=== PATIENT | female | born 1985 ===

== ENCOUNTER 2017-05-20 18:26 | Emergency (ER) | payer SELFPAY ==
[2017-05-20 20:49] VITALS: BMI 36.5
--- NOTE | 2017-05-20 22:10 | OBADHP ---
Datetime: 05/20/2017 21:22 Admit Comment, IP Provider: Pt not in active labor 2cm dilated 50% effaced -3 station. Pt given er precautions and to return at 08:00 for IOL. Case d/w Dr. Khan The patient was seen with the resident I agree with the note Gus Brush MD Family Medicine, PGY1 IP Chief Complaint: Maternal discomfort EGA AdmitDate IP: 40.5 IP Adm Impression: Postterm, intrauterine IP Admit Plan: Discharge home Datetime: 05/20/2017 20:00 Pelvic Type - PN: Adequate Extremities - PN: Normal Abdomen - PN: Normal Back - PN: Normal Breast - PN: Not Done Lungs - PN: Normal Heart - PN: Normal Thyroid - PN: Normal Neurologic - PN: Normal HEENT - PN: Normal General - PN: Normal FHR - Baseline A Provider: 130 Contraction Comments Provider: 7 minutes Pool Provider: Negative Vital Signs Provider: Reviewed; Within Normal Limits NICHD Variability Prov Fetus A: Moderate 6-25bpm NICHD Accel Fetus A IP Provider: 15X15 FHR Category Provider Fetus A: Category I NICHD Decel Fetus A IP Provider: None Dilatation, Provider: 2 Effacement, Provider: 50 Station, Provider: -3 Genitourinary Exam: Normal DTRs - PN: Not Done
== END 2017-05-20 20:15 | disposition home or self-care (01) ==
LOC: H.EROB2 18:26 → H.L&D 18:37 → H.EROB2 20:15 → EDSTATUS 05-21 18:26
DX: O47.1 False labor at or after 37 completed weeks of gestation (principal); Z3A.40 40 weeks gestation of pregnancy; O48.0 Post-term pregnancy

== ENCOUNTER 2017-05-21 08:25 | Inpatient (IN) | payer MEDICAID, SELFPAY ==
[2017-05-20 20:49] VITALS: BMI 36.5
[2017-05-21] MEDS: Lactated Ringer's 1,000 ML IV SCH ×2 (09:50→18:30)
[2017-05-21] MEDS: Oxytocin 30 UNITS in Sodium Chloride 0.9% 500 ML IV SCH ×2 (11:01→18:58)
[2017-05-21 11:05] LABS: BASO % 0.4 % (0.0-2.0); EOS # 0.2 K/uL (0.0-0.7); EOS % 2.2 % (0.0-4.0); HEMOGLOBIN 10.6 g/dL (12.0-16.0); LYMPH # 1.8 K/uL (1.0-4.3); LYMPH % 25.6 % (20.0-40.0); MEAN CELL VOLUME 79.9 fl (81.0-99.0); MEAN CORPUSCULAR HEMOGLOBIN 25.9 pg (27.0-31.0); MEAN CORPUSCULAR HGB CONC 32.4 g/dL (33.0-37.0); MEAN PLATELET VOLUME 11.9 fl (7.2-11.7); MONO # 0.5 K/uL (0.0-0.8); MONO % 6.6 % (0.0-10.0); NEUT # 4.6 K/uL (1.8-7.0); NEUT % 65.2 % (50.0-75.0); NRBC % 0.1 % (0.0-0.0); RBC 4.11 Mil/uL (3.80-5.20); RED CELL DISTRIBUTION WIDTH 15.5 % (11.5-14.5); WHITE BLOOD COUNT 7.1 K/uL (4.8-10.8)
[2017-05-21] MEDS ORDERED: Oxytocin 30 UNITS in Sodium Chloride 0.9% 500 ML IV ONE (12:58)
[2017-05-21] MEDS ORDERED: Fentanyl/Bupivacaine HCl 250 ML EPI ONE (16:05)
[2017-05-21] MEDS ORDERED: Bupivacaine HCl 0.25% PF (10 ml) Inj ONE (16:11)
[2017-05-21] MEDS ORDERED: Lactated Ringer's 1,000 ML IV SCH (16:15)
[2017-05-21] MEDS ORDERED: Lidocaine 1% Inj (20ml) ONE (19:01)
[2017-05-21] MEDS ORDERED: Oxycodone/Acetaminophen 5/325 mg Tab PO PRN ×4 (20:52→20:57)
[2017-05-21] MEDS ORDERED: Benzocaine/Menthol SPRAY TOP PRN ×2 (20:52→20:57)
[2017-05-22 07:15] LABS: BASO % 0.3 % (0.0-2.0); EOS # 0.1 K/uL (0.0-0.7); EOS % 0.8 % (0.0-4.0); HEMOGLOBIN 9.3 g/dL (12.0-16.0); LYMPH # 2.1 K/uL (1.0-4.3); LYMPH % 18.5 % (20.0-40.0); MEAN CELL VOLUME 79.8 fl (81.0-99.0); MEAN CORPUSCULAR HEMOGLOBIN 25.2 pg (27.0-31.0); MEAN CORPUSCULAR HGB CONC 31.6 g/dL (33.0-37.0); MEAN PLATELET VOLUME 11.6 fl (7.2-11.7); MONO % 9.2 % (0.0-10.0); NEUT # 8.1 K/uL (1.8-7.0); NEUT % 71.2 % (50.0-75.0); RBC 3.67 Mil/uL (3.80-5.20); RED CELL DISTRIBUTION WIDTH 15.1 % (11.5-14.5); WHITE BLOOD COUNT 11.4 K/uL (4.8-10.8)
--- NOTE | 2017-05-22 09:12 | OBADHP ---
Datetime: 05/21/2017 13:45 Admit Comment, IP Provider: 32 yo with IUP 40.2 wks presents for IOL, patient came yesterday c/ o ctx but only was 2 cm, she was discharged home and told return today for IOL. denies lof, vb, +FM. No headache, recent fever, chest pain, sob, no urinary symptoms. PNC: PCP Dr Dick, [facility]. PObH: NVD x1 PGynH: none PMH: none FMH: none Meds PNV Allergies: NKDA VS wnl Pelvic: monitor: 146/mod variability/15x15/cat 1/ no decc A/P 32 yo with IUP 40.2 wks admitted for IOL Admit to unit Start IV fluids Initiate IOL protocol Case discussed w/ Dr Blanco, OB money order clerk Rachana Nuñez PGY1 (Annotations: Data stored by CPN on behalf of user) Pelvic Type - PN: Adequate Extremities - PN: Normal Abdomen - PN: Normal Back - PN: Normal Breast - PN: Normal Lungs - PN: Normal Heart - PN: Normal Thyroid - PN: Normal Neurologic - PN: Normal HEENT - PN: Normal General - PN: Normal FHR - Baseline A Provider: 146 Vital Signs Provider: Reviewed IP Chief Complaint: Scheduled induction of labor NICHD Variability Prov Fetus A: Moderate 6-25bpm NICHD Accel Fetus A IP Provider: 15X15 FHR Category Provider Fetus A: Category III NICHD Decel Fetus A IP Provider: None Dilatation, Provider: 2 Effacement, Provider: 50 Station, Provider: -3 Genitourinary Exam: Normal DTRs - PN: Normal IP Adm Impression: Term, intrauterine ; No Active Labor IP Admit Plan: Admit to unit; Initiate labor induction protocol Datetime: 05/20/2017 21:22 EGA AdmitDate IP: 40.6
--- NOTE | 2017-05-22 09:18 | OBDS ---
DELIVERY PERSONNEL Delivery Doctor: Luis Blanco MD Anesthesiologist: Amie Johnston MD MATERNAL INFORMATION Delivery Anesthesia: Epidural Medications in Delivery: Pitocin 30u/500LR Estimated Blood Loss (ml): 200 Placenta Cultured: No Provider Comments: Normal spontaneous vaginal delivery. Patient delivered a viable infant with Apgars of 9 and 9 at one and 5 minutes respectively. delivered via MARGARETTE position. Placenta delivered spontaneously. Pad, as above. Uterus firm and appropr iately hemostatic following delivery. Patient tolerated delivery and repair well. Estimated blood los s 200 mL. No complications LABOR SUMMARY EDC: 05/14/2017 00:00 No. Babies in Womb: 1 Attempted: No Labor Anesthesia: Epidural LABOR INFORMATION Onset of Labor: 05/21/2017 14:00 Complete Dilatation: 05/21/2017 18:52 Oxytocin: Augmentation Group B Beta Strep: Negative Steroids Given: None Reason Steroids Not Administered: Not Applicable MEMBRANES Membranes Rupture Method: Artificial Rupture of Membranes: 05/21/2017 14:45 Length of Rupture (hrs): 4.22 Amniotic Fluid Color: Light Meconium Amniotic Fluid Amount: Small Amniotic Fluid Odor: Normal STAGES OF LABOR Stage 1 hrs: 4 Stage 1 min: 52 Stage 2 hrs: 0 Stage 2 min: 6 Stage 3 hrs: 0 Stage 3 min: 5 Total Time in Labor hrs: 5 Total Time in Labor min: 3 VAGINAL DELIVERY Laceration Extension: First Degree Laceration Type: Perineal Laceration Repair Note: Physical midline perineal laceration. Area infiltrated with 1% lidocaine. La ceration repaired with 2.0. Without complication. Patient tolerated well. Initial Vag Sponge Count: 5 Final Vag Sponge Count: 5 Initial Vag Sharps Count: 2 Final Vag Sharps Count: 2 Sponge Count Correct: Yes Sharps Count Correct: Yes BABY A INFORMATION Delivery Date/Time: 05/21/2017 18:58 Method of Delivery: Vaginal Born in Route : No : N/A Forceps: N/A Vacuum Extraction: N/A Shoulder Dystocia : No SHOULDER DYSTOCIA BABY A Infant Delivery Date/Time: 05/21/2017 18:58 PRESENTATION/POSITION BABY A Presentation: Cephalic PLACENTA INFORMATION BABY A Placenta Delivery Time : 05/21/2017 19:03 Placenta Method of Delivery: Spontaneous Placenta Status: Delivered SCORES BABY A Heart Rate 1 min: >100 bpm Resp Effort 1 min: Good Cry Reflex Irritability 1 min: Cough or Sneeze or Pulls Away Muscle Tone 1 min: Active Motion Color 1 min: Body [place], Extremities Blue SCORE 1 MIN: 9 Heart Rate 5 min: >100 bpm Resp Effort 5 min: Good Cry Reflex Irritability 5 min: Cough or Sneeze or Pulls Away Muscle Tone 5 min: Active Motion Color 5 min: Body [place], Extremities Blue SCORE 5 MIN: 9 INFANT INFORMATION BABY A Gestational Age at Delivery: 41.0 Gestational Status: Term Infant Outcome : Liveborn Infant Condition : Stable Infant Sex: Female IDENTIFICATION/MEDS BABY A ID Band Number: [id number] ID Band Location: Left Leg; Left Arm WEIGHT/LENGTH BABY A Infant Birthweight (gms): 3845 Weight (lb): 8 Infant Weight (oz): 8 CORD INFORMATION BABY A No. Cord Vessels: 3 Nuchal Cord : N/A Cord Blood Taken: Yes ASSESSMENT BABY A Infant Complications: None Physical Findings at Delivery: Within Normal Limits Respirations: Appears Normal Pallet Stone Inserter/ALS Called : No Infant Care By: Transferred To: Remains with Mother
--- NOTE | 2017-05-22 12:21 | OBPPN ---
Datetime: 05/22/2017 07:27 PP Pain Prov: Within normal limits PP Nausea Prov: Denies PP Flatus Prov: Yes PP BM Prov: No PP Breasts Prov: Not Done PP Heart Prov: Normal PP Lungs Prov: Normal PP Abdomen/Uterus Prov: Normal PP Lochia Prov: Normal PP Vulva/Perineum Prov: Not Done PP CVA Tenderness Prov: Normal PP Extremities Prov: Normal PP C/S Incision Prov: Not Applicable PP Progress Prov: Normal PP Impression Prov: Normal progression PP Plan Prov: Continue present management PP Progress Note Prov: S: 32 yo s/p NVD on 05/21/17 at 18:58. [facility] No overnight events. Pt reports occasional abdominal pain, but well controlled with p ain meds. Pt is ambulating without any difficulties. Breast feeding baby. Tolerating PO diet. Lochia is similar to light menses in volume. Voiding freely, no bowel movement, but passing gas per rectum. Denies fever, chills, diarrhea, nausea, vomiting, chest pain, dyspnea, and dizziness. VS: stable GEN: NAD Cardio: S1S2, no M/G/R Resp: clear breath sounds b/l Abdomen: BS+, NT, Uterus is firm and at the level of the umbilicus. EXT: No edema, calves nontender NEURO/PSYCHI: AAOx3, no grossly focal deficit, preserved affect and mood. Assessment/Plan: 32 yo s/p NVD on 05/21/17 at 18:58. Pt remains afebrile, tolerating pain with medication, tolerating PO intake, doing well on PPD1. OOB with caution SCDs for DVT prophylaxis, pt ambulating Ibuprofen 600mg for pain. Colace 100mg PO BID/Senokot 17.2 mg qHS for constipation Encourage and ambulating F/u CBC post-delivery: pending Anticipated d/c to home, 05/23/17. Rachana Nuñez, PGY 1 OB Hospitalist on-call. On rounds this morning, I saw and examined this pt. Agree with PGY 1 not sam NOBLE PP Procedures: None Vital Signs Provider PP: Reviewed; Within Normal Limits
--- NOTE | 2017-05-23 16:28 | OBDCSUM ---
Datetime: 05/23/2017 08:30 Discharged to, Provider: Home Follow up at, Provider: [facility] Disch Instr Activity: Normal activity; May Shower Disch Instr Diet: Regular Discharge Instructions, Provider: Routine instructions given Discharge Diagnosis, Provider: Term Delivered Discharge Time: 05/23/2017 17:00 Follow up in weeks, Provider: 4-6 weeks Disch Referrals: None Contraception discussed, Prov: Yes Disch Activity Restrictions: No exercising; No lifting; No driving; No sexual activity; Nothing in v agina - [place], tampons, douche Discharge Comment, Provider: Discharge Summary DOA: 05/21/2017 EGA: 40.0 Diagnosis: NVD Term Risk factors: none Summary of : 32 yo F L_D summary DOL: 05/21/2017 at 18:58 NVD NB: F : 9/9 Weight: 3845g PP summary No serious complications during PP. Lochia like menses, mild pain, controlled with medications Rubella immune, Tdap 04/07/17 Blood type: O+ CBC pp: 9.3/29.3 prescribed FeSO4 325 mg Discharge Date: 05/23/2017 Time 10:00 AM Discharge Instructions: -encourage -percocet/Ibuprofen for pain PRN -Senokot 17.2 mg qHS for constipation -Ambulate as tolerated -f/u NB visit 3-7 days w/ deputy brand inspector and PP visit 4-6 weeks with OB --- Gus Brush MD PGY-1 Contraception after Delivery: Undecided
--- NOTE | 2017-05-23 16:28 | OBPPN ---
Datetime: 05/23/2017 08:30 PP Pain Prov: Within normal limits PP Nausea Prov: Denies PP Flatus Prov: Yes PP BM Prov: Yes PP Breasts Prov: Not Done PP Heart Prov: Normal PP Lungs Prov: Normal PP Abdomen/Uterus Prov: Normal PP Lochia Prov: Normal PP Vulva/Perineum Prov: Not Done PP CVA Tenderness Prov: Normal PP Extremities Prov: Normal PP C/S Incision Prov: Not Applicable PP Progress Prov: Normal PP Impression Prov: Normal progression PP Plan Prov: Discharge PP Progress Note Prov: S: 32 yo s/p NVD on 05/21/17 at 18:58. [facility] No overnight events. Pt reports occasional abdominal pain, but well controlled with p ain meds. Pt is ambulating without any difficulties. Breast feeding baby and supplementing with formu la. Tolerating PO diet. Lochia is similar to light menses in volume. Voiding freely, bowel movement a nd passing gas per rectum. Denies fever, chills, diarrhea, nausea, vomiting, chest pain, dyspnea, and dizziness. VS: stable GEN: NAD Cardio: S1S2, no M/G/R Resp: clear breath sounds b/l Abdomen: BS+, NT, Uterus is firm and at the level of the umbilicus. EXT: No edema, calves nontender NEURO/PSYCHI: AAOx3, no grossly focal deficit, preserved affect and mood. Assessment/Plan: 32 yo s/p NVD on 05/21/17 at 18:58. Pt remains afebrile, tolerating pain with medication, tolerating PO intake, doing well on PPD2. OOB with caution SCDs for DVT prophylaxis, pt ambulating Ibuprofen 600mg for pain. Colace 100mg PO BID/Senokot 17.2 mg qHS for constipation Encouraged F/u CBC post-delivery: 9.3/29.3 prescribed FeSO4 Anticipated d/c to home, 05/23/17. -Gus Brush MD PGY1 OB Hospitalist on-call. On rounds, I saw and examined this patient. Agree with note. JON NOBLE PP Procedures: None Vital Signs Provider PP: Reviewed; Within Normal Limits
[2017-05-23 21:50] VITALS: BP 110/66; PULSE 77; RESP 18; TEMP 98; O2SAT 100
== END 2017-05-23 17:26 | disposition home or self-care (01) | DRG 775 ==
LOC: H.L&D 09:45 → H.OB/GYN 21:50
PROVIDERS: ADMIT Obstetrics & Gynecology; ATTEND Obstetrics & Gynecology
PROC: 0HQ9XZZ Repair Perineum Skin, External Approach (ICD-10-PCS; principal; 2017-05-21)
PROC: 10E0XZZ Delivery of Products of Conception, External Approach (ICD-10-PCS; 2017-05-21)
PROC: 4A1HXCZ Monitoring of Products of Conception, Cardiac Rate, External Approach (ICD-10-PCS; 2017-05-21)
DX: O70.0 First degree perineal laceration during delivery (principal); K59.00 Constipation, unspecified; Z37.0 Single live birth; Z3A.41 41 weeks gestation of pregnancy